=== PATIENT | female | born 1985 | race Caucasian/White ===

== ENCOUNTER 2020-09-29 15:21 | Observation (INO) | payer MEDICAID ==
[~2020-09-29] VITALS: Ht 162.6 cm; Wt 90.7 kg
[2020-10-02] MEDS ORDERED: FERR325T6 MT (07:21)
[2020-10-02] MEDS ORDERED: IBUP-2030 PO (07:21)
== END 2020-09-29 19:10 | disposition home or self-care (01) ==
LOC: 8 EST LDRP 15:21
PROVIDERS: ADMIT Obstetrics & Gynecology; ATTEND Obstetrics & Gynecology
DX: O26.893 Other specified pregnancy related conditions, third trimester (principal); R10.2 Pelvic and perineal pain; Z3A.38 38 weeks gestation of pregnancy
CPT/HCPCS: 59025; 76815; 76818; G0378; 99281